=== PATIENT | female | born 1995 | race Caucasian/White ===

== ENCOUNTER 2017-05-21 04:17 | Inpatient (IN) | payer MEDICAID ==
[2017-05-21] MEDS ORDERED: Butorphanol 1 MG/ML SDV IVPUSH PRN (04:26)
[2017-05-21] MEDS ORDERED: Sodium Chloride 0.9% 2.5 ML Syringe FLUSH PRN (04:26)
[2017-05-21] MEDS ORDERED: Terbutaline 1 MG/ML SDV SUBCUT PRN (04:26)
[2017-05-21] MEDS ORDERED: Nalbuphine 10 MG/1 ML Vial IVPUSH PRN (04:26)
[2017-05-21] MEDS ORDERED: Water For Irrigation,Sterile 1,000 ML Container IRR PRN (04:26)
[2017-05-21] MEDS ORDERED: Methylergonovine 0.2 MG/1 ML Amp IM PRN (04:26)
[2017-05-21] MEDS ORDERED: Carboprost Tromethamine 250 MCG/1 ML Amp IM PRN (04:26)
[2017-05-21] MEDS ORDERED: Lidocaine 1% 50 ML MDV INJECT PRN (04:26)
[2017-05-21] MEDS ORDERED: Sodium Chloride 0.9% 10 ML Syringe FLUSH PRN (04:26)
[2017-05-21] MEDS ORDERED: Misoprostol 200 MCG Tab PO PRN (04:26)
[2017-05-21] MEDS ORDERED: Oxytocin/0.9 % Sodium Chloride 30 UNIT/500 ML BAG IV SCH ×2 (04:30)
[2017-05-21] MEDS: Lactated Ringers 1,000 ML IV SCH ×3 (04:51→07:37)
[2017-05-21] MEDS ORDERED: Ropivacaine HCl/PF 100 ML ONE (07:11)
[2017-05-21] MEDS ORDERED: fentaNYL 100 MCG/2 ML SDV ONE (07:11)
--- NOTE | 2017-05-21 07:36 | PCM.PREANE ---
Preanesthetic Assessment - Anesthesia/Transfusion/Family Hx Anesthesia History: Prior Anesthesia Without Reaction (GA) Transfusion History: No Prior Transfusion(s) - Review of Systems General: No Symptoms Pulmonary: No Symptoms Cardiovascular: No Symptoms Gastrointestinal: No Symptoms Neurological: No Symptoms Other: Reports: None - Physical Assessment Height: 5 ft 4 in Weight: 89.358 kg ASA Class: 2 Mental Status: Alert & Oriented x3 Airway Class: Mallampati = 2 Dentition: Reports: Normal Dentition ROM/Head Extension: Full Lungs: Clear to Auscultation, Normal Respiratory Effort Cardiovascular: Regular Rate, Regular Rhythm - Lab Values: Laboratory Last Values WBC 12.16 K/uL (4.0-11.0) H 05/21/17 04:51 RBC 4.16 M/uL (4.30-5.90) L 05/21/17 04:51 Hgb 12.8 g/dL (12.0-16.0) 05/21/17 04:51 Hct 38.0 % (36.0-46.0) 05/21/17 04:51 MCV 91.3 fL (80.0-98.0) 05/21/17 04:51 MCH 30.8 pg (27.0-32.0) 05/21/17 04:51 MCHC 33.7 g/dL (31.0-37.0) 05/21/17 04:51 RDW Std Deviation 46.1 fl (28.0-62.0) 05/21/17 04:51 RDW Coeff of Malachi 14 % (11.0-15.0) 05/21/17 04:51 Plt Count 177 K/uL (150-400) 05/21/17 04:51 MPV 11.20 fL (7.40-12.00) 05/21/17 04:51 Nucleated RBC % 0.0 /100WBC 05/21/17 04:51 Nucleated RBCs # 0 K/uL 05/21/17 04:51 Blood Type A POSITIVE 05/21/17 04:51 Antibody Screen NEGATIVE 05/21/17 04:51 - Allergies Allergies/Adverse Reactions: Allergies Allergy/AdvReac Type Severity Reaction Status Date / Time No Known Allergies Allergy Verified 02/16/17 18:23 - Acknowledgements Anesthesia Type Planned: Epidural Pt an Appropriate Candidate for the Planned Anesthesia: Yes Alternatives and Risks of Anesthesia Discussed w Pt/Guardian: Yes Pt/Guardian Understands and Agrees with Anesthesia Plan: Yes PreAnesthesia Questionnaire HEENT History: Reports: None Cardiovascular History: Reports: Other (See Below) (Gestational HTN - induction) Respiratory History: Reports: None Gastrointestinal History: Reports: GERD Genitourinary History: Reports: None 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: : 1 Para: 0 LMP (Approximate): Musculoskeletal History: Reports: None Neurological History: Reports: None - Past Surgical History HEENT Surgical History: Reports: Oral Surgery Musculoskeletal Surgical History: Reports: Other (See Below) Other Musculoskeletal Surgeries/Procedures:: right ankle ligament surgery - SUBSTANCE USE Smoking Status *Q: Never Smoker Second Hand Smoke Exposure: No Recreational Drug Use History: No - CURRENT (IN HOUSE) MEDS Current Meds: Current Medications Butorphanol Tartrate (Stadol) 1 mg IVPUSH ASDIRECTED PRN PRN Reason: Pain Carboprost Tromethamine (Hemabate Ds) 250 mcg IM ASDIRECTED PRN PRN Reason: Post Hemorrhage Lactated Ringer's (Ringers, Lactated) 1,000 mls @ 150 mls/hr IV ASDIRECTED LEANDER Last Admin: 05/21/17 07:04 Dose: 999 mls/hr Oxytocin/Sodium Chloride (Oxytocin 30 Unit/500 Ml-Ns) 30 unit in 500 mls @ 999 mls/hr IV ASDIRECTED LEANDER Oxytocin/Sodium Chloride (Oxytocin 30 Unit/500 Ml-Ns) 30 unit in 500 mls @ 2 mls/hr IV TITRATE LEANDER; 2 MUNITS/MIN PRN Reason: Protocol Last Titration: 05/21/17 05:47 Dose: 4 munits/min, 4 mls/hr Lidocaine HCl (Xylocaine 1%) 50 ml INJECT .ONCE PRN PRN Reason: Laceration repair Methylergonovine Maleate (Methergine) 0.2 mg IM ASDIRECTED PRN PRN Reason: Post Hemorrhage Misoprostol (Cytotec) 200 mcg PO .ONCE PRN PRN Reason: Post Hemorrhage Nalbuphine HCl (Nubain) 10 mg IVPUSH ASDIRECTED PRN PRN Reason: Pain (severe 7-10) Sodium Chloride (Saline Flush) 10 ml FLUSH ASDIRECTED PRN PRN Reason: Keep Vein Open Sodium Chloride (Saline Flush) 2.5 ml FLUSH ASDIRECTED PRN PRN Reason: Keep Vein Open Sterile Water (Sterile Water For Irrigation) 1,000 ml IRR ASDIRECTED PRN PRN Reason: delivery Terbutaline Sulfate (Brethine) 0.25 mg SUBCUT ASDIRECTED PRN PRN Reason: Tacysystole Discontinued Medications Fentanyl (Sublimaze) Confirm Administered Dose 100 mcg .ROUTE .STK-MED ONE Stop: 05/21/17 07:12 Ropivacaine (Naropin 0.2%) Confirm Administered Dose 100 mls @ as directed .ROUTE .STK-MED ONE Stop: 05/21/17 07:12
[2017-05-21] MEDS ORDERED: Benzocaine/Menthol 20%-0.5% Spray 78 GM Cannister TOP PRN (15:33)
[2017-05-21] MEDS ORDERED: Acetaminophen 500 MG Tab PO PRN (15:33)
[2017-05-21] MEDS ORDERED: oxyCODONE 5 MG Tab PO PRN (15:33)
[2017-05-21] MEDS ORDERED: Lanolin 100% Cream 7 GM Tube TOP PRN (15:33)
[2017-05-21] MEDS ORDERED: Misoprostol 200 MCG Tab RECTAL PRN (15:33)
[2017-05-21] MEDS ORDERED: Docusate Sodium 100 MG Cap PO PRN (15:33)
[2017-05-21] MEDS ORDERED: Witch Hazel Medicated Pads 40/Jar TOP PRN (15:33)
[2017-05-21] MEDS ORDERED: Bisacodyl 10 MG Supp RECTAL PRN (15:33)
[2017-05-21] MEDS: Ibuprofen 800 MG Tab PO PRN (17:47)
[2017-05-21] MEDS ORDERED: Sodium Chloride 0.9% 1,000 ML IV ONE (18:15)
--- NOTE | 2017-05-21 18:44 | EDM.PDOC ---
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: Musculoskeletal History: Reports: None Neurological History: Reports: None - Past Surgical History HEENT Surgical History: Reports: Oral Surgery Musculoskeletal Surgical History: Reports: Other (See Below) Other Musculoskeletal Surgeries/Procedures:: right ankle ligament surgery Social & Family History - Family History Family Medical History: Noncontributory - Tobacco Use Smoking Status *Q: Never Smoker Second Hand Smoke Exposure: No - Caffeine Use Caffeine Use: Reports: Coffee, Soda - Recreational Drug Use Recreational Drug Use: No ED ROS GENERAL - Review of Systems Review Of Systems: ROS reveals no pertinent complaints other than HPI. ED EXAM, GENERAL - Physical Exam Exam: See Below Course - Orders/Labs/Meds Orders: Active Orders 24 hr Category Date Time Status Patient Status [ADT] Routine ADT 05/21/17 15:33 Active EKG 12 Lead [EKG Documentation Completion] [RC] ROUTINE Care 05/21/17 18:19 Active Heart Tones [RC] CONTINUOUS Care 05/21/17 04:26 Inactive Non Stress Test [RC] PER UNIT ROUTINE Care 05/21/17 04:26 Inactive May Shower [RC] ASDIRECTED Care 05/21/17 15:33 Active Oxygen Therapy [RC] ASDIRECTED Care 05/21/17 04:27 Inactive Up ad Bridgette [RC] ASDIRECTED Care 05/21/17 15:33 Active Vaginal Exam [RC] PRN Care 05/21/17 04:26 Inactive Vaginal Exam [RC] PRN Care 05/21/17 04:27 Inactive Vital Signs [RC] PER UNIT ROUTINE Care 05/21/17 04:26 Inactive Vital Signs [RC] PER UNIT ROUTINE Care 05/21/17 04:27 Inactive Vital Signs [RC] PER UNIT ROUTINE Care 05/21/17 15:33 Active Regular Diet [DIET] Diet 05/21/17 Dinner Active CTA Head W & W/O Contrast [Ang Head] [CT] Urgent Exams 05/21/17 18:26 Ordered COMPREHENSIVE METABOLIC PN,CMP [CHEM] Routine Lab 05/21/17 18:22 Received HEMOGLOBIN/HEMATOCRIT,HH [HEME] Timed Lab 05/22/17 05:11 Ordered MAGNESIUM [CHEM] Routine Lab 05/21/17 18:22 Received Acetaminophen [Tylenol Extra Strength] Med 05/21/17 15:33 Active 1,000 mg PO Q4H PRN Benzocaine/Menthol [Dermoplast Pain Relief 20%-0.5% Med 05/21/17 15:33 Active Whigham] 78 gm TOP ASDIRECTED PRN Bisacodyl [Dulcolax] Med 05/21/17 15:33 Active 10 mg RECTAL .ONCE PRN Docusate Sodium [Colace] Med 05/21/17 15:33 Active 100 mg PO BID PRN Ibuprofen [Motrin] Med 05/21/17 15:33 Active 800 mg PO Q6H PRN Lanolin [Lansinoh HPA] Med 05/21/17 15:33 Active See Dose Instructions TOP ASDIRECTED PRN Misoprostol [Cytotec] Med 05/21/17 15:33 Active 1,000 mcg RECTAL .ONCE PRN Sodium Chloride 0.9% [Normal Saline] 1,000 ml Med 05/21/17 18:15 Active IV .Bolus Witch Carly [Tucks] Med 05/21/17 15:33 Active 1 pad TOP ASDIRECTED PRN oxyCODONE Med 05/21/17 15:33 Active 5 mg PO Q2H PRN Assess Lochia [WOMSER] Per Unit Routine Oth 05/21/17 15:33 Ordered Assess Uterine Involution [WOMSER] Per Unit Routine Oth 05/21/17 15:33 Ordered Perineal Care [OM.PC] Per Unit Routine Oth 05/21/17 15:33 Ordered Peripheral IV Discontinue [OM.PC] Routine Oth 05/21/17 15:33 Ordered Resuscitation Status Routine Resus Stat 05/21/17 15:33 Ordered Medication Orders Acetaminophen (Tylenol Extra Strength) 1,000 mg PO Q4H PRN PRN Reason: Pain Benzocaine/Menthol (Dermoplast Pain Relief 20%-0.5% [place]) 78 gm TOP ASDIRECTED PRN PRN Reason: Perineal Comfort Measure Last Admin: 05/21/17 17:47 Dose: 1 can Bisacodyl (Dulcolax) 10 mg RECTAL .ONCE PRN PRN Reason: Constipation Docusate Sodium (Colace) 100 mg PO BID PRN PRN Reason: Constipation Emollient Ointment (Lansinoh Hpa) 0 gm TOP ASDIRECTED PRN PRN Reason: Sore Nipples Last Admin: 05/21/17 17:46 Dose: 1 tube Sodium Chloride (Normal Saline) 1,000 mls @ 999 mls/hr IV .Bolus ONE Stop: 05/21/17 19:15 Ibuprofen (Motrin) 800 mg PO Q6H PRN PRN Reason: Pain Last Admin: 05/21/17 17:47 Dose: 800 mg Misoprostol (Cytotec) 1,000 mcg RECTAL .ONCE PRN PRN Reason: excessive vaginal bleeding Oxycodone HCl (Oxycodone) 5 mg PO Q2H PRN PRN Reason: Pain Witch Carly (Tucks) 1 pad TOP ASDIRECTED PRN PRN Reason: comfort care Last Admin: 05/21/17 17:47 Dose: 1 tub Labs: Laboratory Tests 05/21/17 05/21/17 05/21/17 Range/Units 04:51 04:51 18:14 WBC 12.16 H (4.0-11.0) K/uL RBC 4.16 L (4.30-5.90) M/uL Hgb 12.8 (12.0-16.0) g/dL Hct 38.0 (36.0-46.0) % MCV 91.3 (80.0-98.0) fL MCH 30.8 (27.0-32.0) pg MCHC 33.7 (31.0-37.0) g/dL RDW Std Deviation 46.1 (28.0-62.0) fl RDW Coeff of Malachi 14 (11.0-15.0) % Plt Count 177 (150-400) K/uL MPV 11.20 (7.40-12.00) fL Nucleated RBC % 0.0 /100WBC Nucleated RBCs # 0 K/uL POC Glucose 69 (60-110) mg/dL Blood Type A POSITIVE Antibody Screen NEGATIVE 05/21/17 Range/Units 18:22 WBC 18.55 H (4.0-11.0) K/uL RBC 4.12 L (4.30-5.90) M/uL Hgb 12.6 (12.0-16.0) g/dL Hct 37.2 (36.0-46.0) % MCV 90.3 (80.0-98.0) fL MCH 30.6 (27.0-32.0) pg MCHC 33.9 (31.0-37.0) g/dL RDW Std Deviation 45.7 (28.0-62.0) fl RDW Coeff of Malachi 14 (11.0-15.0) % Plt Count 164 (150-400) K/uL MPV 10.70 (7.40-12.00) fL Nucleated RBC % 0.0 /100WBC Nucleated RBCs # 0 K/uL POC Glucose (60-110) mg/dL Blood Type Antibody Screen Meds: Medications Generic Name Dose Route Start Last Admin Trade Name Freq PRN Reason Stop Dose Admin Acetaminophen 1,000 mg 05/21/17 15:33 Tylenol Extra Strength PO Q4H PRN Pain Benzocaine/Menthol 78 gm 05/21/17 15:33 05/21/17 17:47 Dermoplast Pain Relief 20%-0.5% Whigham TOP 1 can ASDIRECTED PRN Administration Perineal Comfort Measure Bisacodyl 10 mg 05/21/17 15:33 Dulcolax RECTAL .ONCE PRN Constipation Docusate Sodium 100 mg 05/21/17 15:33 Colace PO BID PRN Constipation Emollient Ointment 0 gm 05/21/17 15:33 05/21/17 17:46 Lansinoh Hpa TOP 1 tube ASDIRECTED PRN Administration Sore Nipples Sodium Chloride 1,000 mls @ 999 mls/hr 05/21/17 18:15 Normal Saline IV 05/21/17 19:15 .Bolus ONE Ibuprofen 800 mg 05/21/17 15:33 05/21/17 17:47 Motrin PO 800 mg Q6H PRN Administration Pain Misoprostol 1,000 mcg 05/21/17 15:33 Cytotec RECTAL .ONCE PRN excessive vaginal bleeding Oxycodone HCl 5 mg 05/21/17 15:33 Oxycodone PO Q2H PRN Pain Witch Carly 1 pad 05/21/17 15:33 05/21/17 17:47 Tucks TOP 1 tub ASDIRECTED PRN Administration comfort care Discontinued Medications Generic Name Dose Route Start Last Admin Trade Name Todd PRN Reason Stop Dose Admin Butorphanol Tartrate 1 mg 05/21/17 04:26 Stadol IVPUSH ASDIRECTED PRN Pain Carboprost Tromethamine 250 mcg 05/21/17 04:26 Hemabate Ds IM ASDIRECTED PRN Post Hemorrhage Fentanyl Confirm 05/21/17 07:11 05/21/17 09:33 Sublimaze Administered 05/21/17 07:12 Not Given Dose 100 mcg .ROUTE .STK-MED ONE Lactated Ringer's 1,000 mls @ 150 mls/hr 05/21/17 04:30 05/21/17 07:37 Ringers, Lactated IV 150 mls/hr ASDIRECTED LEANDER Administration Oxytocin/Sodium Chloride 30 unit in 500 mls @ 999 mls/hr 05/21/17 04:30 Oxytocin 30 Unit/500 Ml-Ns IV ASDIRECTED LEANDER Oxytocin/Sodium Chloride 30 unit in 500 mls @ 2 mls/hr 05/21/17 04:30 15:10 Oxytocin 30 Unit/500 Ml-Ns IV 999 mls/hr TITRATE LEANDER Titration Protocol 2 MUNITS/MIN Ropivacaine Confirm 05/21/17 07:11 05/21/17 09:33 Naropin 0.2% Administered 05/21/17 07:12 Not Given Dose 100 mls @ as directed .ROUTE .STK-MED ONE Lidocaine HCl 50 ml 05/21/17 04:26 Xylocaine 1% INJECT .ONCE PRN Laceration repair Methylergonovine Maleate 0.2 mg 05/21/17 04:26 Methergine IM ASDIRECTED PRN Post Hemorrhage Misoprostol 200 mcg 05/21/17 04:26 Cytotec PO .ONCE PRN Post Hemorrhage Nalbuphine HCl 10 mg 05/21/17 04:26 Nubain IVPUSH ASDIRECTED PRN Pain (severe 7-10) Sodium Chloride 10 ml 05/21/17 04:26 Saline Flush FLUSH ASDIRECTED PRN Keep Vein Open Sodium Chloride 2.5 ml 05/21/17 04:26 Saline Flush FLUSH ASDIRECTED PRN Keep Vein Open Sterile Water 1,000 ml 05/21/17 04:26 05/21/17 15:09 Sterile Water For Irrigation IRR 1,000 ml ASDIRECTED PRN Administration delivery Terbutaline Sulfate 0.25 mg 05/21/17 04:26 Brethine SUBCUT ASDIRECTED PRN Tacysystole Departure - Departure Time of Disposition: 18:45 Disposition: Still A Patient 30 Clinical Impression: Vasovagal reaction, Seizure-like activity - Discharge Information Critical Care Note - Critical Care Note Total Time (mins): 30 Comments: 21-year-old female who is on OB floor post normal vaginal delivery with a viable infant without complication reported by nursing Prior to arrival rapid response was called apparently there was a witnessed seizure activity, witnessed by dad. He describes as eyes rolling back and joints different name does not describe any rhythmic activity other than a high flutter. These symptoms had resolved and the patient was going to try to go to the bathroom and had vasovagal symptoms. on my arrival shortly after the vasovagal episode Dr. Tapia was present and had requested my assistance, patient's blood pressure was recorded at 80/50 by nursing staff with an Accu- Chek of 69. The patient was asymptomatic at that time no postictal symptoms. Blood pressure had returned more to baseline 117/70, I had nursing place orders for CBC CMP and magnesium with questionable seizure activity and her primary OB physician arrived and had taken over adding a CT of the head EKG was performed with no acute ST changes. 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 Bar to follow lab and imaging and redirect patient is hemodynamically stable at this time in no apparent distress no neurologic deficit - My Orders Last 24 Hours: My Active Orders 05/21/17 18:15 Sodium Chloride 0.9% [Normal Saline] 1,000 ml IV .Bolus 05/21/17 18:22 COMPREHENSIVE METABOLIC PN,CMP [CHEM] Routine MAGNESIUM [CHEM] Routine - Assessment/Plan Last 24 Hours: My Active Orders 05/21/17 18:15 Sodium Chloride 0.9% [Normal Saline] 1,000 ml IV .Bolus 05/21/17 18:22 COMPREHENSIVE METABOLIC PN,CMP [CHEM] Routine MAGNESIUM [CHEM] Routine
[2017-05-21 18:54] LABS: CHLORIDE,CL 107 mmol/L (98-110); SODIUM,NA 136 mmol/L (136-146)
--- NOTE | 2017-05-21 18:57 | PCM.PN ---
- General Info Date of Service: 05/21/17 Admission Dx/Problem (Free Text): 21 yo P1 s/p with 1 episode for seizure like activity Subjective Update: I was called by the nurse that patient had a seizure like episode at 1800 Patient was seen at bedside with Dr Hamilton at the side of the bed with the patient and . As per nurse's record , patient was assisted to the bathroom and complained of lightheadness and passed out for about 10 seconds intially , she regained consciousness and immediately passed out with eyes rolling and stiff limbs for about 30 seconds. She has a staring gaze for few seconds post ictal. After patient BP 80/50 and FS: 67. She was given NS bolus and apple juice. Patient seen at bedside by me . she is coherent , Alert in time place and person Functional Status: Reports: Pain Controlled - Review of Systems General: Reports: No Symptoms HEENT: Reports: No Symptoms Pulmonary: Reports: No Symptoms Cardiovascular: Reports: No Symptoms Gastrointestinal: Reports: No Symptoms Genitourinary: Reports: No Symptoms - Patient Data Weight - Most Recent: 89.358 kg Lab Results Last 24 Hours: Laboratory Results - last 24 hr 05/21/17 05/21/17 05/21/17 Range/Units 04:51 04:51 18:14 WBC 12.16 H (4.0-11.0) K/uL RBC 4.16 L (4.30-5.90) M/uL Hgb 12.8 (12.0-16.0) g/dL Hct 38.0 (36.0-46.0) % MCV 91.3 (80.0-98.0) fL MCH 30.8 (27.0-32.0) pg MCHC 33.7 (31.0-37.0) g/dL RDW Std Deviation 46.1 (28.0-62.0) fl RDW Coeff of Malachi 14 (11.0-15.0) % Plt Count 177 (150-400) K/uL MPV 11.20 (7.40-12.00) fL Nucleated RBC % 0.0 /100WBC Nucleated RBCs # 0 K/uL POC Glucose 69 (60-110) mg/dL Blood Type A POSITIVE Antibody Screen NEGATIVE 05/21/17 05/21/17 Range/Units 18:22 18:34 WBC 18.55 H (4.0-11.0) K/uL RBC 4.12 L (4.30-5.90) M/uL Hgb 12.6 (12.0-16.0) g/dL Hct 37.2 (36.0-46.0) % MCV 90.3 (80.0-98.0) fL MCH 30.6 (27.0-32.0) pg MCHC 33.9 (31.0-37.0) g/dL RDW Std Deviation 45.7 (28.0-62.0) fl RDW Coeff of Malachi 14 (11.0-15.0) % Plt Count 164 (150-400) K/uL MPV 10.70 (7.40-12.00) fL Nucleated RBC % 0.0 /100WBC Nucleated RBCs # 0 K/uL POC Glucose 88 (60-110) mg/dL Blood Type Antibody Screen Med Orders - Current: Current Medications Acetaminophen (Tylenol Extra Strength) 1,000 mg PO Q4H PRN PRN Reason: Pain Benzocaine/Menthol (Dermoplast Pain Relief 20%-0.5% [place]) 78 gm TOP ASDIRECTED PRN PRN Reason: Perineal Comfort Measure Last Admin: 05/21/17 17:47 Dose: 1 can Bisacodyl (Dulcolax) 10 mg RECTAL .ONCE PRN PRN Reason: Constipation Docusate Sodium (Colace) 100 mg PO BID PRN PRN Reason: Constipation Emollient Ointment (Lansinoh Hpa) 0 gm TOP ASDIRECTED PRN PRN Reason: Sore Nipples Last Admin: 05/21/17 17:46 Dose: 1 tube Sodium Chloride (Normal Saline) 1,000 mls @ 999 mls/hr IV .Bolus ONE Stop: 05/21/17 19:15 Last Admin: 05/21/17 18:15 Dose: 999 mls/hr Ibuprofen (Motrin) 800 mg PO Q6H PRN PRN Reason: Pain Last Admin: 05/21/17 17:47 Dose: 800 mg Misoprostol (Cytotec) 1,000 mcg RECTAL .ONCE PRN PRN Reason: excessive vaginal bleeding Oxycodone HCl (Oxycodone) 5 mg PO Q2H PRN PRN Reason: Pain Witch Carly (Tucks) 1 pad TOP ASDIRECTED PRN PRN Reason: comfort care Last Admin: 05/21/17 17:47 Dose: 1 tub Discontinued Medications Butorphanol Tartrate (Stadol) 1 mg IVPUSH ASDIRECTED PRN PRN Reason: Pain Carboprost Tromethamine (Hemabate Ds) 250 mcg IM ASDIRECTED PRN PRN Reason: Post Hemorrhage Fentanyl (Sublimaze) Confirm Administered Dose 100 mcg .ROUTE .[place] ONE Stop: 05/21/17 07:12 Last Admin: 05/21/17 09:33 Dose: Not Given Lactated Ringer's (Ringers, Lactated) 1,000 mls @ 150 mls/hr IV ASDIRECTED LEANDER Last Admin: 05/21/17 07:37 Dose: 150 mls/hr Oxytocin/Sodium Chloride (Oxytocin 30 Unit/500 Ml-Ns) 30 unit in 500 mls @ 999 mls/hr IV ASDIRECTED LEANDER Oxytocin/Sodium Chloride (Oxytocin 30 Unit/500 Ml-Ns) 30 unit in 500 mls @ 2 mls/hr IV TITRATE LEANDER; 2 MUNITS/MIN PRN Reason: Protocol Last Titration: 05/21/17 15:10 Dose: 999 mls/hr Ropivacaine (Naropin 0.2%) Confirm Administered Dose 100 mls @ as directed .ROUTE .[place] ONE Stop: 05/21/17 07:12 Last Admin: 05/21/17 09:33 Dose: Not Given Lidocaine HCl (Xylocaine 1%) 50 ml INJECT .ONCE PRN PRN Reason: Laceration repair Methylergonovine Maleate (Methergine) 0.2 mg IM ASDIRECTED PRN PRN Reason: Post Hemorrhage Misoprostol (Cytotec) 200 mcg PO .ONCE PRN PRN Reason: Post Hemorrhage Nalbuphine HCl (Nubain) 10 mg IVPUSH ASDIRECTED PRN PRN Reason: Pain (severe 7-10) Sodium Chloride (Saline Flush) 10 ml FLUSH ASDIRECTED PRN PRN Reason: Keep Vein Open Sodium Chloride (Saline Flush) 2.5 ml FLUSH ASDIRECTED PRN PRN Reason: Keep Vein Open Sterile Water (Sterile Water For Irrigation) 1,000 ml IRR ASDIRECTED PRN PRN Reason: delivery Last Admin: 05/21/17 15:09 Dose: 1,000 ml Terbutaline Sulfate (Brethine) 0.25 mg SUBCUT ASDIRECTED PRN PRN Reason: Tacysystole - Exam General: Alert, Oriented HEENT: Pupils Equal Lungs: Clear to Auscultation Cardiovascular: Regular Rate (Female) Exam: Normal External Exam Back Exam: Normal Inspection EKG INTERPRETATION EKG Date: 05/21/17 Rhythm: NSR - Problem List & Annotations (1) Seizure-like activity SNOMED Code(s): 107668399 Code(s): R56.9 - UNSPECIFIED CONVULSIONS Status: Acute Current Visit: Yes - Problem List Review Problem List Initiated/Reviewed/Updated: Yes - My Orders Last 24 Hours: My Active Orders 05/21/17 18:19 EKG 12 Lead [EKG Documentation Completion] [RC] ROUTINE 05/21/17 18:26 CTA Head W & W/O Contrast [Ang Head] [CT] Urgent 05/21/17 18:49 Head w wo Cont [CT] Urgent - Assessment Assessment:: 21 yo P1 s/p PPD0 , with seizure like activity - Plan Plan:: Plan Follow CBC ,Mag and BMP EKG normal Monitor vital signs q 15mins Clear diet for now
[2017-05-21] MEDS ORDERED: Magnesium Oxide 400 MG Tab PO ONE (19:07)
[2017-05-21] MEDS ORDERED: Calcium Carbonate 500 MG Tab.Chew PO ONE (19:09)
[2017-05-21] MEDS ORDERED: Potassium Chloride 20 MEQ Packet PO ONE (19:15)
[2017-05-21] MEDS ORDERED: Potassium Chloride 20 MEQ Tab.ER PO ONE (21:30)
--- NOTE | 2017-05-21 23:07 | OR ---
SURGEON: Herminia Francisco M.D. DATE OF PROCEDURE: 05/21/2017 PREOPERATIVE DIAGNOSIS: 40 and 2/7th week intrauterine , gestational hypertension. POSTOPERATIVE DIAGNOSIS: 40 and 2/7th week intrauterine , gestational hypertension. PROCEDURE PERFORMED: Pitocin induction of labor, artificial rupture of membranes, term spontaneous vaginal delivery, repair of bilateral vaginal lacerations. SURGEON: Herminia Francisco M.D. ANESTHESIA: Epidural. ESTIMATED BLOOD LOSS: Less than 300 mL. FINDINGS: Live born female, scores 9 and 9 weighing 2770 g. Placenta spontaneous, Schultze intact with 3 vessels. The bilateral vaginal lacerations were repaired. COMPLICATIONS: None known. DISPOSITION: Mother and baby are in LDRP in good condition. BRIEF HISTORY: This is a 21-year-old female, G1, P0. She presented to the clinic at 40 and 1/7th weeks' gestation with diastolic blood pressures in the 80s. She was 3-4 cm dilated. I did recommend proceeding with induction of labor which was delayed to the following day due to availability on Labor and Delivery. She presented to Labor and Delivery. By the time she arrived, she was actually fairly normotensive, so we did proceed with the induction of labor. She received IV Pitocin when she was 4-5 cm dilated. Artificial rupture of membranes was performed. Clear fluid noted. She received an epidural for pain control. She then had an intrauterine pressure catheter placed. Pitocin was initiated up to a maximum of 8 milliunits per minute. She did have an episode of bradycardia of the fetus. Pitocin was discontinued. The fetus recovered. At this point, she was 8 cm dilated. She continued to progress without Pitocin to 9+ cm dilatation, and at this point, I was able to reduce the anterior cervix and the fetus was in the right occiput posterior position and was easily rotated to the right occiput anterior position, and the patient began to push. PROCEDURE IN DETAIL: With the patient in the dorsal lithotomy position, the patient pushed over a 2- 1/2-hour time period to a 5+ station, at which time, the head was delivered spontaneously and atraumatically over the perineum with support with subsequent delivery of the 's shoulders and body without any difficulty. The infant was bulb suctioned by nose and mouth, and after the cord had ceased to pulsate, it was doubly clamped and cut. The was handed to the nurse in attendance at delivery. The is a liveborn female, scores 9 and 9 weighing 2770 g. Pitocin was initiated after delivery of the infant to assist with delivery of the placenta which was delivered spontaneously, Schultze intact with 3 vessels. Upon inspection of the pelvis and perineum, there were no periurethral, cervical, rectal, or perineal lacerations. There were bilateral vaginal sidewall lacerations at 5 and 7 o'clock. They were repaired using a running lock suture of 2-0 Caprosyn. Final sponge, needle, and instrument counts were correct. There were no known complications. Mother and baby remained in LDRP in good condition. GARETH / TYLER /[id number]
[2017-05-22] MEDS: Ibuprofen 800 MG Tab PO PRN ×2 (05:31→18:32)
[2017-05-22 07:53] LABS: CHLORIDE,CL 111 mmol/L (98-110); SODIUM,NA 138 mmol/L (136-146)
--- NOTE | 2017-05-22 09:29 | PCM.PNPP ---
- General Info Date of Service: 05/22/17 Admission Dx/Problem (Free Text): 21 yo P1 s/p with 1 episode for seizure like activity. Patient had [employer] called last night. She was evaluated by ER jose antonio and Myself. EKG done - wnl , CT head - wnl , Electrolytes replaced K: 3.2 --> 4.1 Ca: 8.3 ---> 9.0 Glucose 84 . Subjective Update: Patient denies any dizziness this morning. she is ambulating voiding and tolerating regular diet. Patient will like to go home today. If patient is stable 24hr after the seizure activity will d/c home today with precautions Functional Status: Reports: Pain Controlled, Tolerating Diet, Ambulating, Urinating - Review of Systems General: Reports: No Symptoms HEENT: Reports: No Symptoms Pulmonary: Reports: No Symptoms Cardiovascular: Reports: No Symptoms Gastrointestinal: Reports: No Symptoms Genitourinary: Reports: No Symptoms Musculoskeletal: Reports: No Symptoms - General Info Date of Service: 05/22/17 - Patient Data Vital Signs - Most Recent: Last Vital Signs Temp 36.4 C 05/22/17 04:00 Pulse 69 05/22/17 04:00 Resp 14 05/22/17 04:00 BP 106/57 L 05/22/17 04:00 Pulse Ox 96 05/22/17 04:00 Weight - Most Recent: 89.358 kg Lab Results - Last 24 Hours: Laboratory Results - last 24 hr 05/21/17 05/21/17 05/21/17 Range/Units 18:14 18:22 18:22 WBC 18.55 H (4.0-11.0) K/uL RBC 4.12 L (4.30-5.90) M/uL Hgb 12.6 (12.0-16.0) g/dL Hct 37.2 (36.0-46.0) % MCV 90.3 (80.0-98.0) fL MCH 30.6 (27.0-32.0) pg MCHC 33.9 (31.0-37.0) g/dL RDW Std Deviation 45.7 (28.0-62.0) fl RDW Coeff of Malachi 14 (11.0-15.0) % Plt Count 164 (150-400) K/uL MPV 10.70 (7.40-12.00) fL Nucleated RBC % 0.0 /100WBC Nucleated RBCs # 0 K/uL Sodium 136 (136-146) mmol/L Potassium 3.2 L (3.5-5.1) mmol/L Chloride 107 (98-110) mmol/L Carbon Dioxide 19 L (21-31) mmol/L BUN 9 (6.0-23.0) mg/dL Creatinine 0.6 (0.6-1.5) mg/dL Est Cr Clr Drug Dosing 128.08 mL/min Estimated GFR (MDRD) > 60.0 ml/min Glucose 91 (60-110) mg/dL POC Glucose 69 (60-110) mg/dL Calcium 8.3 L (8.8-10.8) mg/dL Magnesium 0.9 L (1.5-2.3) mEq/L Total Bilirubin 0.4 (0.1-1.5) mg/dL AST 20 (5-40) IU/L ALT 12 (8-54) IU/L Alkaline Phosphatase 124 (40-150) Total Protein 5.4 L (6.0-8.0) g/dL Albumin 2.5 L (3.5-5.0) g/dL Globulin 2.9 (2.0-3.5) g/dL Albumin/Globulin Ratio 0.9 L (1.3-2.8) 05/21/17 05/22/17 05/22/17 Range/Units 18:34 05:21 05:21 WBC (4.0-11.0) K/uL RBC (4.30-5.90) M/uL Hgb 10.9 L (12.0-16.0) g/dL Hct 33.1 L (36.0-46.0) % MCV (80.0-98.0) fL MCH (27.0-32.0) pg MCHC (31.0-37.0) g/dL RDW Std Deviation (28.0-62.0) fl RDW Coeff of Malachi (11.0-15.0) % Plt Count (150-400) K/uL MPV (7.40-12.00) fL Nucleated RBC % /100WBC Nucleated RBCs # K/uL Sodium 138 (136-146) mmol/L Potassium 4.1 (3.5-5.1) mmol/L Chloride 111 H (98-110) mmol/L Carbon Dioxide 21 (21-31) mmol/L BUN 9 (6.0-23.0) mg/dL Creatinine 0.6 (0.6-1.5) mg/dL Est Cr Clr Drug Dosing 128.08 mL/min Estimated GFR (MDRD) > 60.0 ml/min Glucose 84 (60-110) mg/dL POC Glucose 88 (60-110) mg/dL Calcium 9.0 (8.8-10.8) mg/dL Magnesium (1.5-2.3) mEq/L Total Bilirubin 0.2 (0.1-1.5) mg/dL AST 23 (5-40) IU/L ALT 13 (8-54) IU/L Alkaline Phosphatase 117 (40-150) Total Protein 4.8 L (6.0-8.0) g/dL Albumin 2.2 L (3.5-5.0) g/dL Globulin 2.6 (2.0-3.5) g/dL Albumin/Globulin Ratio 0.9 L (1.3-2.8) Med Orders - Current: Current Medications Acetaminophen (Tylenol Extra Strength) 1,000 mg PO Q4H PRN PRN Reason: Pain Last Admin: 05/21/17 21:46 Dose: 1,000 mg Benzocaine/Menthol (Dermoplast Pain Relief 20%-0.5% [place]) 78 gm TOP ASDIRECTED PRN PRN Reason: Perineal Comfort Measure Last Admin: 05/21/17 17:47 Dose: 1 can Bisacodyl (Dulcolax) 10 mg RECTAL .ONCE PRN PRN Reason: Constipation Docusate Sodium (Colace) 100 mg PO BID PRN PRN Reason: Constipation Emollient Ointment (Lansinoh Hpa) 0 gm TOP ASDIRECTED PRN PRN Reason: Sore Nipples Last Admin: 05/21/17 17:46 Dose: 1 tube Ibuprofen (Motrin) 800 mg PO Q6H PRN PRN Reason: Pain Last Admin: 05/22/17 05:31 Dose: 800 mg Misoprostol (Cytotec) 1,000 mcg RECTAL .ONCE PRN PRN Reason: excessive vaginal bleeding Oxycodone HCl (Oxycodone) 5 mg PO Q2H PRN PRN Reason: Pain Witch Carly (Tucks) 1 pad TOP ASDIRECTED PRN PRN Reason: comfort care Last Admin: 05/21/17 17:47 Dose: 1 tub Discontinued Medications Butorphanol Tartrate (Stadol) 1 mg IVPUSH ASDIRECTED PRN PRN Reason: Pain Calcium Carbonate/Glycine (Tums) 1,000 mg PO ONETIME ONE Stop: 05/21/17 19:10 Last Admin: 05/21/17 21:50 Dose: 1,000 mg Carboprost Tromethamine (Hemabate Ds) 250 mcg IM ASDIRECTED PRN PRN Reason: Post Hemorrhage Fentanyl (Sublimaze) Confirm Administered Dose 100 mcg .ROUTE .STK-MED ONE Stop: 05/21/17 07:12 Last Admin: 05/21/17 09:33 Dose: Not Given Lactated Ringer's (Ringers, Lactated) 1,000 mls @ 150 mls/hr IV ASDIRECTED LEANDER Last Admin: 05/21/17 07:37 Dose: 150 mls/hr Oxytocin/Sodium Chloride (Oxytocin 30 Unit/500 Ml-Ns) 30 unit in 500 mls @ 999 mls/hr IV ASDIRECTED LEANDER Oxytocin/Sodium Chloride (Oxytocin 30 Unit/500 Ml-Ns) 30 unit in 500 mls @ 2 mls/hr IV TITRATE LEANDER; 2 MUNITS/MIN PRN Reason: Protocol Last Titration: 05/21/17 15:10 Dose: 999 mls/hr Ropivacaine (Naropin 0.2%) Confirm Administered Dose 100 mls @ as directed .ROUTE .STK-MED ONE Stop: 05/21/17 07:12 Last Admin: 05/21/17 09:33 Dose: Not Given Sodium Chloride (Normal Saline) 1,000 mls @ 999 mls/hr IV .Bolus ONE Stop: 05/21/17 19:15 Last Admin: 05/21/17 18:15 Dose: 999 mls/hr Lidocaine HCl (Xylocaine 1%) 50 ml INJECT .ONCE PRN PRN Reason: Laceration repair Magnesium Oxide (Magnesium Oxide) 800 mg PO ONETIME ONE Stop: 05/21/17 19:08 Last Admin: 05/21/17 21:48 Dose: 800 mg Methylergonovine Maleate (Methergine) 0.2 mg IM ASDIRECTED PRN PRN Reason: Post Hemorrhage Misoprostol (Cytotec) 200 mcg PO .ONCE PRN PRN Reason: Post Hemorrhage Nalbuphine HCl (Nubain) 10 mg IVPUSH ASDIRECTED PRN PRN Reason: Pain (severe 7-10) Potassium Chloride (Klor-Con) 40 meq PO ASDIRECTED ONE Stop: 05/21/17 19:16 Last Admin: 05/22/17 00:36 Dose: Not Given Potassium Chloride (Klor-Con M20) 40 meq PO ONETIME ONE Stop: 05/21/17 21:31 Last Admin: 05/21/17 21:49 Dose: 40 meq Sodium Chloride (Saline Flush) 10 ml FLUSH ASDIRECTED PRN PRN Reason: Keep Vein Open Sodium Chloride (Saline Flush) 2.5 ml FLUSH ASDIRECTED PRN PRN Reason: Keep Vein Open Sterile Water (Sterile Water For Irrigation) 1,000 ml IRR ASDIRECTED PRN PRN Reason: delivery Last Admin: 05/21/17 15:09 Dose: 1,000 ml Terbutaline Sulfate (Brethine) 0.25 mg SUBCUT ASDIRECTED PRN PRN Reason: Tacysystole - Interaction Disposition, : [place] at Bedside Support Person: Significant Other - Recovery Exam Fundal Tone: Firm Fundal Level: At Umbilicus Fundal Placement: Midline Lochia Amount: Scant Lochia Color: Rubra/Red Perineum Description: Other (see below) Other Perinuem Description: vaginal laceration Episiotomy/Laceration: Approximated Bladder Status: Voiding Urinary Elimination: Voided - Exam General: Alert HEENT: Pupils Equal, Pupils Reactive Lungs: Clear to Auscultation Cardiovascular: Regular Rate, Regular Rhythm GI/Abdominal Exam: Normal Bowel Sounds Extremities: No Pedal Edema - Problem List & Annotations (1) Seizure-like activity SNOMED Code(s): 317350074 Code(s): R56.9 - UNSPECIFIED CONVULSIONS Status: Acute Current Visit: Yes (2) Vaginal delivery SNOMED Code(s): 612482710 Code(s): O80 - ENCOUNTER FOR FULL-TERM UNCOMPLICATED DELIVERY Status: Acute Current Visit: Yes - Problem List Review Problem List Initiated/Reviewed/Updated: Yes - My Orders Last 24 Hours: My Active Orders 05/21/17 18:19 EKG 12 Lead [EKG Documentation Completion] [RC] ROUTINE 05/21/17 18:49 Head wo Cont [CT] Urgent - Assessment Assessment:: 21 yo P1 s/p PPD1 , with seizure like activity , stable , s/p Electrolyte replacement , Minimal lochia - Plan Plan:: Plan Continue Routine care Pain control as needed Possible discharge today if stable
[2017-05-22] MEDS: Magnesium Oxide 400 MG Tab PO SCH ×2 (18:17→21:09)
--- NOTE | 2017-05-22 19:20 | PCM48HPAN ---
Post Anesthesia Note - EVALUATION WITHIN 48HRS OF ANESTHETIC Vital Signs in Normal Range: Yes Patient Participated in Evaluation: Yes Respiratory Function Stable: Yes Airway Patent: Yes Cardiovascular Function Stable: Yes Hydration Status Stable: Yes Pain Control Satisfactory: Yes Nausea and Vomiting Control Satisfactory: Yes Mental Status Recovered: Yes
[2017-05-23] MEDS: Ibuprofen 800 MG Tab PO PRN (01:54)
[2017-05-23] MEDS: Magnesium Oxide 400 MG Tab PO SCH ×2 (08:49→10:56)
--- NOTE | 2017-05-23 09:58 | PCM.PNPP ---
- General Info Date of Service: 05/23/17 Admission Dx/Problem (Free Text): 21 yo P1 s/p PPD 2 , with 1 episode for seizure like activity( 05/21) . no event for > 36 hrs now. Magnessium low , replaced will check today before discharge. she . Subjective Update: Ambulating , voiding and tolerating diet Functional Status: Reports: Pain Controlled, Tolerating Diet, Ambulating, Urinating - Review of Systems General: Reports: No Symptoms HEENT: Reports: No Symptoms Pulmonary: Reports: No Symptoms Cardiovascular: Reports: No Symptoms Gastrointestinal: Reports: No Symptoms Genitourinary: Reports: No Symptoms Musculoskeletal: Reports: No Symptoms Skin: Reports: No Symptoms Neurological: Reports: No Symptoms Psychiatric: Reports: No Symptoms - General Info Date of Service: 05/23/17 - Patient Data Vital Signs - Most Recent: Last Vital Signs Temp 36.2 C 05/23/17 04:00 Pulse 80 05/23/17 04:00 Resp 14 05/23/17 04:00 BP 105/61 05/23/17 04:00 Pulse Ox 94 L 05/23/17 04:00 Weight - Most Recent: 89.358 kg Med Orders - Current: Current Medications Acetaminophen (Tylenol Extra Strength) 1,000 mg PO Q4H PRN PRN Reason: Pain Last Admin: 05/21/17 21:46 Dose: 1,000 mg Benzocaine/Menthol (Dermoplast Pain Relief 20%-0.5% [place]) 78 gm TOP ASDIRECTED PRN PRN Reason: Perineal Comfort Measure Last Admin: 05/21/17 17:47 Dose: 1 can Bisacodyl (Dulcolax) 10 mg RECTAL .ONCE PRN PRN Reason: Constipation Docusate Sodium (Colace) 100 mg PO BID PRN PRN Reason: Constipation Emollient Ointment (Lansinoh Hpa) 0 gm TOP ASDIRECTED PRN PRN Reason: Sore Nipples Last Admin: 05/21/17 17:46 Dose: 1 tube Ibuprofen (Motrin) 800 mg PO Q6H PRN PRN Reason: Pain Last Admin: 05/23/17 01:54 Dose: 800 mg Magnesium Oxide (Magnesium Oxide) 800 mg PO BID LEANDER Last Admin: 05/23/17 08:49 Dose: 800 mg Misoprostol (Cytotec) 1,000 mcg RECTAL .ONCE PRN PRN Reason: excessive vaginal bleeding Oxycodone HCl (Oxycodone) 5 mg PO Q2H PRN PRN Reason: Pain Witch Carly (Tucks) 1 pad TOP ASDIRECTED PRN PRN Reason: comfort care Last Admin: 05/21/17 17:47 Dose: 1 tub Discontinued Medications Butorphanol Tartrate (Stadol) 1 mg IVPUSH ASDIRECTED PRN PRN Reason: Pain Calcium Carbonate/Glycine (Tums) 1,000 mg PO ONETIME ONE Stop: 05/21/17 19:10 Last Admin: 05/21/17 21:50 Dose: 1,000 mg Carboprost Tromethamine (Hemabate Ds) 250 mcg IM ASDIRECTED PRN PRN Reason: Post Hemorrhage Fentanyl (Sublimaze) Confirm Administered Dose 100 mcg .ROUTE .STK-MED ONE Stop: 05/21/17 07:12 Last Admin: 05/21/17 09:33 Dose: Not Given Lactated Ringer's (Ringers, Lactated) 1,000 mls @ 150 mls/hr IV ASDIRECTED LEANDER Last Admin: 05/21/17 07:37 Dose: 150 mls/hr Oxytocin/Sodium Chloride (Oxytocin 30 Unit/500 Ml-Ns) 30 unit in 500 mls @ 999 mls/hr IV ASDIRECTED LEANDER Oxytocin/Sodium Chloride (Oxytocin 30 Unit/500 Ml-Ns) 30 unit in 500 mls @ 2 mls/hr IV TITRATE LEANDER; 2 MUNITS/MIN PRN Reason: Protocol Last Titration: 05/21/17 15:10 Dose: 999 mls/hr Ropivacaine (Naropin 0.2%) Confirm Administered Dose 100 mls @ as directed .ROUTE .STK-MED ONE Stop: 05/21/17 07:12 Last Admin: 05/21/17 09:33 Dose: Not Given Sodium Chloride (Normal Saline) 1,000 mls @ 999 mls/hr IV .Bolus ONE Stop: 05/21/17 19:15 Last Admin: 05/21/17 18:15 Dose: 999 mls/hr Lidocaine HCl (Xylocaine 1%) 50 ml INJECT .ONCE PRN PRN Reason: Laceration repair Magnesium Oxide (Magnesium Oxide) 800 mg PO ONETIME ONE Stop: 05/21/17 19:08 Last Admin: 05/21/17 21:48 Dose: 800 mg Methylergonovine Maleate (Methergine) 0.2 mg IM ASDIRECTED PRN PRN Reason: Post Hemorrhage Misoprostol (Cytotec) 200 mcg PO .ONCE PRN PRN Reason: Post Hemorrhage Nalbuphine HCl (Nubain) 10 mg IVPUSH ASDIRECTED PRN PRN Reason: Pain (severe 7-10) Potassium Chloride (Klor-Con) 40 meq PO ASDIRECTED ONE Stop: 05/21/17 19:16 Last Admin: 05/22/17 00:36 Dose: Not Given Potassium Chloride (Klor-Con M20) 40 meq PO ONETIME ONE Stop: 05/21/17 21:31 Last Admin: 05/21/17 21:49 Dose: 40 meq Sodium Chloride (Saline Flush) 10 ml FLUSH ASDIRECTED PRN PRN Reason: Keep Vein Open Sodium Chloride (Saline Flush) 2.5 ml FLUSH ASDIRECTED PRN PRN Reason: Keep Vein Open Sterile Water (Sterile Water For Irrigation) 1,000 ml IRR ASDIRECTED PRN PRN Reason: delivery Last Admin: 05/21/17 15:09 Dose: 1,000 ml Terbutaline Sulfate (Brethine) 0.25 mg SUBCUT ASDIRECTED PRN PRN Reason: Tacysystole - Interaction Disposition, : at Bedside Support Person: Significant Other - Recovery Exam Fundal Tone: Firm Fundal Level: 1 Fingerbreadths Below Umbilicus Fundal Placement: Midline Lochia Amount: Scant Lochia Color: Rubra/Red Perineum Description: Intact, Minimal Bruising/Swelling Other Perinuem Description: vaginal laceration Episiotomy/Laceration: Approximated Bladder Status: Voiding Urinary Elimination: Voided - Exam General: Alert, Oriented Lungs: Clear to Auscultation Cardiovascular: Regular Rate GI/Abdominal Exam: Normal Bowel Sounds Extremities: Normal Inspection - Problem List & Annotations (1) Seizure-like activity SNOMED Code(s): 504561452 Code(s): R56.9 - UNSPECIFIED CONVULSIONS Status: Acute Current Visit: Yes (2) Vaginal delivery SNOMED Code(s): 803726705 Code(s): O80 - ENCOUNTER FOR FULL-TERM UNCOMPLICATED DELIVERY Status: Acute Current Visit: Yes - Problem List Review Problem List Initiated/Reviewed/Updated: Yes - My Orders Last 24 Hours: My Active Orders 05/22/17 12:15 Magnesium Oxide 800 mg PO BID 05/23/17 10:00 MAGNESIUM [CHEM] Routine - Assessment Assessment:: 21 yo P1 s/p PPD2 , with seizure like activity , stable , s/p Electrolyte replacement , Minimal lochia - Plan Plan:: Plan Continue Routine care Pain control as needed Discharge today
[2017-05-23 10:06] VITALS: BP 110/67
--- NOTE | 2017-05-24 10:41 | CT ---
EXAM DATE: 05/21/17 PATIENT'S AGE: 21 Patient: SULEIMAN OVALLE Facility: [place], [place] Site . Site : 1995 Study: CT Head WO CONT [id number]/17/2017 7:19:38 PM Ordering Physician: Nolan Hope Final Report: INDICATION: Seizure TECHNIQUE: CT head without contrast. COMPARISON: None. FINDINGS: CSF spaces: Within normal limits for age. Brain parenchyma: The nails-white differentiation is normal. No sign of mass, hemorrhage, or midline shift. Skull base and calvarium: The visualized paranasal sinuses and mastoid air cells demonstrate no acute or significant findings. The visualized orbits are grossly unremarkable. No skull fractures. IMPRESSION: Unremarkable noncontrast head CT. Dictated by Naga Wyatt MD @ 05/21/2017 7:47:06 PM Dictated by: Naga Wyatt MD @ 05/21/2017 19:47:11 (Electronic Signature) Report Signed by Proxy. [facility]
== END 2017-05-23 14:00 | disposition home or self-care (01) | DRG 775 ==
LOC: MW.OBCHECK 04:17 → MW.OB 04:19 → MW.OBCHECK 04:26 → MW.OB 04:26 → OBSVTOIN 15:09 → MW.OB 05-22 00:55
PROVIDERS: ADMIT Obstetrics & Gynecology; ATTEND Obstetrics & Gynecology
PROC: 10E0XZZ Delivery of Products of Conception, External Approach (ICD-10-PCS; principal; 2017-05-21)
PROC: 3E0P3VZ Introduction of Hormone into Female Reproductive, Percutaneous Approach (ICD-10-PCS; 2017-05-21)
PROC: 10907ZC Drainage of Amniotic Fluid, Therapeutic from Products of Conception, Via Natural or Artificial Opening (ICD-10-PCS; 2017-05-21)
PROC: 0HQ9XZZ Repair Perineum Skin, External Approach (ICD-10-PCS; 2017-05-21)
DX: O13.4 Gestational [pregnancy-induced] hypertension without significant proteinuria, complicating childbirth (principal); O70.0 First degree perineal laceration during delivery; Z3A.40 40 weeks gestation of pregnancy; Z37.0 Single live birth; R56.9 Unspecified convulsions; E83.42 Hypomagnesemia; R55 Syncope and collapse
CPT/HCPCS: 01967; 36415; 51702; 59025; 59409; 70450; 70450-26; 80053; 82962; 83735; 85014; 85018; 85027; 86850; 86900; 86901; 93005; A9270-GY; J2590; J2795; J3010; J7040; J7120